=== PATIENT | male | born 1970 | race Caucasian/White ===

== ENCOUNTER 2023-06-24 10:42 | Observation (INO) | payer OTHER ==
[~2023-06-24] VITALS: Ht 162.6 cm; Wt 72.5 kg
[2023-06-24] MEDS: PANTOPRAZOLE 40MG VIAL IV ONE (11:59)
[2023-06-24 12:09] LABS: INR 1.12; PROTHROMBIN TIME 14.1 SECONDS (12.5-14.5)
[2023-06-24 12:10] LABS: PARTIAL THROMBOPLASTIN TIME 31.5 SECONDS (24.8-34.2)
[2023-06-24 12:11] LABS: BASO % 0.9 % (0.0-1.0); EOS # 0.1 10^3/uL (0.0-0.5); EOS % 3.3 % (0.0-3.0); HEMATOCRIT 35.6 % (42.0-52.0); HEMOGLOBIN 12.4 g/dl (13.5-17.5); LYMPH # 0.9 10^3/uL (1.5-5.0); MEAN CORPUSCULAR HEMOGLOBIN 29.3 pg (27.0-33.0); MEAN CORPUSCULAR HGB CONC 34.8 g/dl (32.0-36.5); MEAN CORPUSCULAR VOLUME 84.2 fl (80.0-96.0); MONO # 0.4 10^3/uL (0.0-0.8); MONO % 10.1 % (2.0-8.0); NEUTROPHILS # 2.8 10^3/uL (1.5-8.5); NEUTROPHILS % 65.2 % (36.0-66.0); PLATELET COUNT, AUTOMATED 107 10^3/uL (150-450); RED BLOOD COUNT 4.23 10^6/uL (4.30-6.10); WHITE BLOOD COUNT 4.3 10^3/uL (4.0-10.0)
[2023-06-24 12:18] LABS: LIPASE 38 U/L (12-53)
[2023-06-24 12:20] LABS: ALBUMIN 3.6 G/DL (3.2-5.2); ALKALINE PHOSPHATASE 99 U/L (46-116); ALT/SGPT 44 U/L (7.0-40); AST/SGOT 31 U/L (<34); BLOOD UREA NITROGEN 13 MG/DL (9-23); CALCIUM LEVEL 8.6 MG/DL (8.5-10.1); CARBON DIOXIDE LEVEL 26 MMOL/L (20-31); CHLORIDE LEVEL 107 MMOL/L (98-107); CREATININE FOR GFR 0.67 MG/DL (0.70-1.30); GLOMERULAR FILTRATION RATE > 60.0 (>56); GLUCOSE, FASTING 164 MG/DL (60-100); POTASSIUM SERUM 4.6 MMOL/L (3.5-5.1); SODIUM LEVEL 138 MMOL/L (136-145); TOTAL PROTEIN 7.7 G/DL (5.7-8.2)
[2023-06-24 12:38] LABS: RSV AMPLIFICATION NEGATIVE (NEGATIVE)
[2023-06-24] MEDS ORDERED: MED REC IN PROGRESS XX SCH (13:05)
[2023-06-24] MEDS ORDERED: ISOVUE-370 76% 100ML VIAL As Ordered ONE (13:22)
[2023-06-24] MEDS ORDERED: MOM 30ML SUSPENSION UDC PO PRN (13:30)
[2023-06-24] MEDS ORDERED: GLUCOSE 4GM CHEW TABLET PO PRN (14:00)
[2023-06-24] MEDS ORDERED: GLUCAGON INJ 1MG VIAL SC PRN (14:00)
[2023-06-24] MEDS ORDERED: DEXTROSE 50% 50ML SYRINGE IV PRN (14:00)
[2023-06-24] MEDS: cefTRIAXone SOD 1 GM in D5W MINI-BAG PLUS 50 ML IV SCH (14:13)
[2023-06-24] MEDS ORDERED: MED REC CURRENTLY UNOBTAINABLE XX SCH (14:45)
[2023-06-24] MEDS: LR 1,000 ML IV SCH ×2 (14:48→17:05)
[2023-06-24] MEDS: OCTREOTIDE ACETATE 100MCG/ML VIAL **IV ADMINISTRATION ONLY IV ONE (14:48)
[2023-06-24] MEDS: OCTREOTIDE ACETATE 1,200 MCG in NS 238.8 ML IV SCH (14:52)
[2023-06-24] MEDS ORDERED: METF500T13 PO (15:17)
[2023-06-24] MEDS ORDERED: PROP60TA14 PO (15:17)
[2023-06-24] MEDS ORDERED: GLIM1TAB4 PO (15:17)
[2023-06-24] MEDS ORDERED: PANT40TA29 PO (15:17)
[2023-06-24] MEDS ORDERED: SUMA50TA2 PO (15:17)
[2023-06-24] MEDS ORDERED: med rec comment (15:18)
[2023-06-24] MEDS ORDERED: HOME MED LIST COMPLETE! XX SCH (15:20)
[2023-06-24 15:21] LABS: IRON (FE) 92 UG/DL (65-175); PERCENT SATURATION 23.4 % (19.7-50.0); TOTAL IRON BINDING CAPACITY 394 UG/DL (250-425)
[2023-06-24 15:22] LABS: FERRITIN 9.5 NG/ML (10.5-307.3)
[2023-06-24 15:23] LABS: VITAMIN B12 LEVEL 391 PG/ML (211-911)
[2023-06-24 15:24] LABS: FOLATE 15.41 NG/ML (>5.4)
[2023-06-24 15:56] LABS: HEPATITIS B CORE ANTIBODY IGM NEGATIVE (NEGATIVE); HEPATITIS C VIRUS ABY INDEX 0.09 INDEX (<0.8)
[2023-06-24] MEDS ORDERED: ROCURONIUM BROMIDE 50MG/5ML VIAL As Ordered ONE (16:03)
[2023-06-24] MEDS ORDERED: MIDAZOLAM INJ 2MG/2ML VIAL As Ordered ONE (16:03)
[2023-06-24] MEDS ORDERED: ONDANSETRON 4MG 2ML VIAL As Ordered ONE (16:03)
[2023-06-24] MEDS ORDERED: LIDOCAINE 2% 100MG/5ML SDV (FOR ANES.) As Ordered ONE (16:03)
[2023-06-24] MEDS ORDERED: fentaNYL 100 MCG/2 ML INJECTION As Ordered ONE (16:03)
[2023-06-24] MEDS ORDERED: propofoL 200 MG/20 ML VIAL As Ordered ONE (16:03)
[2023-06-24] MEDS ORDERED: SUCCINYLCHOLINE 100MG/5ML SYRINGE As Ordered ONE (16:04)
[2023-06-24] MEDS ORDERED: PHENYLephrine 500MCG 5ML (100MCG/ML) SYRINGE As Ordered ONE (16:38)
[2023-06-24] MEDS ORDERED: ONDANSETRON 4MG 2ML VIAL IV PRN (17:05)
[2023-06-24] MEDS ORDERED: oxyCODONE 5MG TAB PO PRN (17:05)
[2023-06-24] MEDS ORDERED: fentaNYL 100 MCG/2 ML INJECTION IV PRN (17:05)
[2023-06-24 17:50] VITALS: O2SAT 97
[2023-06-24 17:52] VITALS: BP 125/71; O2SAT 97
[2023-06-24 18:00] VITALS: BP 125/71; TEMP 97.8; O2SAT 97
[2023-06-24] MEDS: INSULIN LISPRO (NovoLOG) PER UNIT SC SCH (18:00)
[2023-06-24 18:23] LABS: HEMATOCRIT 34.2 % (42.0-52.0); HEMOGLOBIN 11.6 g/dl (13.5-17.5); MEAN CORPUSCULAR HGB CONC 33.9 g/dl (32.0-36.5); MEAN CORPUSCULAR VOLUME 85.5 fl (80.0-96.0); WHITE BLOOD COUNT 3.6 10^3/uL (4.0-10.0)
[2023-06-24 18:52] LABS: PLATELET COUNT, AUTOMATED 84 10^3/uL (150-450)
[2023-06-24 20:16] VITALS: BP 115/71; TEMP 97.1; O2SAT 97
[2023-06-24] MEDS: PANTOPRAZOLE 40MG VIAL IV SCH (21:08)
[2023-06-25] VITALS (10 sets, daily range): BP systolic 117–147; BP diastolic 70–93; TEMP 97.2–99.9; O2SAT 91–98
[2023-06-25 02:06] LABS: HEMATOCRIT 31.8 % (42.0-52.0); MEAN CORPUSCULAR HEMOGLOBIN 29.1 pg (27.0-33.0); MEAN CORPUSCULAR HGB CONC 34.6 g/dl (32.0-36.5); MEAN CORPUSCULAR VOLUME 84.1 fl (80.0-96.0); RED BLOOD COUNT 3.78 10^6/uL (4.30-6.10); WHITE BLOOD COUNT 3.1 10^3/uL (4.0-10.0)
[2023-06-25 02:07] LABS: PLATELET COUNT, AUTOMATED 71 10^3/uL (150-450)
[2023-06-25 06:33] LABS: INR 1.23; PROTHROMBIN TIME 15.1 SECONDS (12.5-14.5)
[2023-06-25 06:56] LABS: ALKALINE PHOSPHATASE 77 U/L (46-116); ALT/SGPT 43 U/L (7.0-40); AST/SGOT 32 U/L (<34); BILIRUBIN,TOTAL 1.1 MG/DL (0.3-1.2); BLOOD UREA NITROGEN 11 MG/DL (9-23); CALCIUM LEVEL 8.2 MG/DL (8.5-10.1); CARBON DIOXIDE LEVEL 29 MMOL/L (20-31); CHLORIDE LEVEL 105 MMOL/L (98-107); GLOMERULAR FILTRATION RATE > 60.0 (>56); GLUCOSE, FASTING 186 MG/DL (60-100); POTASSIUM SERUM 4.6 MMOL/L (3.5-5.1); SODIUM LEVEL 139 MMOL/L (136-145); TOTAL PROTEIN 6.6 G/DL (5.7-8.2)
[2023-06-25] MEDS ORDERED: FERRIC CARBOXYMALTOSE INJ 750 MG, VIAL MATE ADAPTER 1 EACH in NS 250 ML IV ONE (08:00)
[2023-06-25] MEDS: FERRIC CARBOXYMALTOSE INJ 750 MG, VIAL MATE ADAPTER 1 EACH in NS 250 ML IV ONE (09:21)
[2023-06-25 10:18] LABS: HEMATOCRIT 32.1 % (42.0-52.0); HEMOGLOBIN 11.1 g/dl (13.5-17.5); MEAN CORPUSCULAR HEMOGLOBIN 29.5 pg (27.0-33.0); MEAN CORPUSCULAR HGB CONC 34.6 g/dl (32.0-36.5); MEAN CORPUSCULAR VOLUME 85.4 fl (80.0-96.0); RED BLOOD COUNT 3.76 10^6/uL (4.30-6.10); WHITE BLOOD COUNT 2.8 10^3/uL (4.0-10.0)
[2023-06-25 10:21] LABS: PLATELET COUNT, AUTOMATED 71 10^3/uL (150-450)
[2023-06-25] MEDS: ACETAMINOPHEN TAB 650MG DOSE (2X325MG) PO PRN (12:41)
[2023-06-25] MEDS: ONDANSETRON 4MG ORAL DISINTEGRATING TAB SL PRN (14:25)
[2023-06-25] MEDS: SUMAtriptan SUCCINATE 25 MG TAB PO ONE (15:18)
[2023-06-25 17:58] LABS: HEMATOCRIT 34.6 % (42.0-52.0); HEMOGLOBIN 11.8 g/dl (13.5-17.5); MEAN CORPUSCULAR HGB CONC 34.1 g/dl (32.0-36.5); RED BLOOD COUNT 4.07 10^6/uL (4.30-6.10); WHITE BLOOD COUNT 3.2 10^3/uL (4.0-10.0)
[2023-06-25 18:00] LABS: PLATELET COUNT, AUTOMATED 74 10^3/uL (150-450)
[2023-06-26 02:06] LABS: HEMATOCRIT 31.9 % (42.0-52.0); HEMOGLOBIN 11.1 g/dl (13.5-17.5); MEAN CORPUSCULAR HEMOGLOBIN 29.4 pg (27.0-33.0); MEAN CORPUSCULAR HGB CONC 34.8 g/dl (32.0-36.5); MEAN CORPUSCULAR VOLUME 84.6 fl (80.0-96.0); RED BLOOD COUNT 3.77 10^6/uL (4.30-6.10); WHITE BLOOD COUNT 2.8 10^3/uL (4.0-10.0)
[2023-06-26 02:07] LABS: PLATELET COUNT, AUTOMATED 75 10^3/uL (150-450)
[2023-06-26 03:50] VITALS: BP 124/72; TEMP 97.8; O2SAT 96
[2023-06-26 07:28] LABS: INR 1.26; PROTHROMBIN TIME 15.4 SECONDS (12.5-14.5)
[2023-06-26 07:43] LABS: ALBUMIN 3.2 G/DL (3.2-5.2); ALKALINE PHOSPHATASE 77 U/L (46-116); ALT/SGPT 40 U/L (7.0-40); AST/SGOT 31 U/L (<34); BILIRUBIN,TOTAL 0.8 MG/DL (0.3-1.2); BLOOD UREA NITROGEN 7 MG/DL (9-23); CALCIUM LEVEL 8.1 MG/DL (8.5-10.1); CARBON DIOXIDE LEVEL 29 MMOL/L (20-31); CHLORIDE LEVEL 106 MMOL/L (98-107); CREATININE FOR GFR 0.82 MG/DL (0.70-1.30); GLOMERULAR FILTRATION RATE > 60.0 (>56); GLUCOSE, FASTING 158 MG/DL (60-100); SODIUM LEVEL 138 MMOL/L (136-145); TOTAL PROTEIN 6.6 G/DL (5.7-8.2)
[2023-06-26] MEDS: INSULIN LISPRO (NovoLOG) PER UNIT SC SCH ×2 (08:46→20:18)
[2023-06-26 09:09] VITALS: BP 130/82; TEMP 96.8; O2SAT 96
[2023-06-26 09:46] LABS: HEMATOCRIT 36.1 % (42.0-52.0); MEAN CORPUSCULAR HEMOGLOBIN 28.8 pg (27.0-33.0); MEAN CORPUSCULAR HGB CONC 33.2 g/dl (32.0-36.5); MEAN CORPUSCULAR VOLUME 86.8 fl (80.0-96.0); PLATELET COUNT, AUTOMATED 90 10^3/uL (150-450); RED BLOOD COUNT 4.16 10^6/uL (4.30-6.10); WHITE BLOOD COUNT 3.7 10^3/uL (4.0-10.0)
[2023-06-26] MEDS: METOCLOPRAMIDE INJ 10MG/2ML VIAL IV PRN (10:05)
[2023-06-26] MEDS ORDERED: CEFD300CAP PO (10:31)
[2023-06-26] MEDS ORDERED: FERR325T3 PO (10:55)
[2023-06-26] MEDS: SUMAtriptan SUCCINATE 25 MG TAB PO ONE (11:26)
[2023-06-26 12:45] VITALS: BP 134/77; TEMP 97.1; O2SAT 98
[2023-06-26 15:59] VITALS: BP 132/82; TEMP 98; O2SAT 95
[2023-06-26] MEDS: OCTREOTIDE ACETATE 1,200 MCG in NS 238.8 ML IV SCH (17:33)
[2023-06-26 20:00] VITALS: BP 118/80; TEMP 97; O2SAT 98
[2023-06-26] MEDS: PROPRANOLOL 20 MG TAB PO SCH (20:18)
[2023-06-26 21:08] VITALS: BP 136/86; TEMP 98.4
[2023-06-27 06:00] VITALS: BP 111/72; TEMP 97.9; O2SAT 96
[2023-06-27 06:51] LABS: INR 1.23; PROTHROMBIN TIME 15.1 SECONDS (12.5-14.5)
[2023-06-27 09:24] VITALS: BP 144/86
[2023-06-28 16:08] LABS: ANCA-ATYPICAL <1:20 titer (Neg:<1:20); ANTI-MITOCHONDRIAL ANTIBODY <20.0 Units (0.0-20.0); ANTINUCLEAR ANTIBODIES DIRECT Negative (Negative); CERULOPLASMIN 25.3 mg/dL (16.0-31.0); CYTOPLASMIC NEUTROP AB ANCA-C <1:20 titer (Neg:<1:20); LIVER-KIDNEY MICROSOMAL ABY <20.1 Units (0.0-20.0); PERINUCLEAR AB ANCA-P <1:20 titer (Neg:<1:20); TISSUE TRANSGLUTAMINASE IgA <2 U/mL (0-3)
== END 2023-06-27 15:22 | disposition home or self-care (01) ==
LOC: M ED 10:42 → INTOOBSV 13:29 → M ED INP 13:29 → M PCU 17:38 → M MSPAV 06-26 18:54 → M PCU 06-26 19:26 → M MSPAV 06-26 20:57
PROVIDERS: ADMIT Student in an Organized Health Care Education/Training Program; ATTEND Student in an Organized Health Care Education/Training Program
DX: I85.11 Secondary esophageal varices with bleeding (principal); K74.60 Unspecified cirrhosis of liver; D62 Acute posthemorrhagic anemia; D50.9 Iron deficiency anemia, unspecified; K92.1 Melena; K31.89 Other diseases of stomach and duodenum; K76.6 Portal hypertension; D61.818 Other pancytopenia; G43.909 Migraine, unspecified, not intractable, without status migrainosus; E11.9 Type 2 diabetes mellitus without complications; Z79.84 Long term (current) use of oral hypoglycemic drugs; Z79.899 Other long term (current) drug therapy
CPT/HCPCS: 36415; 43244; 74177; 80053; 80074; 82270; 82390; 82607; 82728; 82746; 82784; 83550; 83605; 83690; 85025; 85027; 85049; 85055; 85610; 85730; 86037; 86038; 86255; 86364; 86376; 86850; 86900; 86901; 87631; 93005; 93041; 94760; 96361; 96365; 96366; 96367; 96375; 96376; 99285; C9113; J0696; J1439; J1815; J2250; J2354; J2371; J2405; J2765; J3010; Q9967

== ENCOUNTER 2023-10-22 07:42 | Day surgery (SDC) | payer OTHER ==
[~2023-10-22] VITALS: Ht 162.6 cm; Wt 70.3 kg
[~2023-10-22 07:42] MED LIST: CEFD300CAP PO; FERR1TAB8 PO; FERR325T3 PO; GLIM1TAB84 PO; METF500T13 PO; NS 1,000 ML IV ONE; PANT40TA29 PO; PROP60TA14 PO; SUMA50TA2 PO; med rec comment
[2023-10-22] MEDS ORDERED: fentaNYL 100 MCG/2 ML INJECTION As Ordered ONE (08:54)
[2023-10-22] MEDS ORDERED: LIDOCAINE 2% 100MG/5ML SDV (FOR ANES.) As Ordered ONE (08:54)
[2023-10-22] MEDS ORDERED: propofoL 500 MG/50 ML VIAL As Ordered ONE (08:54)
[2023-10-22 09:20] VITALS: TEMP 96.8
[2023-10-22 09:38] VITALS: BP 119/79; O2SAT 96
== END 2023-10-22 09:42 | disposition home or self-care (01) ==
LOC: M OPP 07:42
PROVIDERS: ATTEND Internal Medicine Gastroenterology
DX: Z12.11 Encounter for screening for malignant neoplasm of colon (principal); K64.8 Other hemorrhoids; K31.89 Other diseases of stomach and duodenum; K76.6 Portal hypertension; I85.00 Esophageal varices without bleeding; E10.9 Type 1 diabetes mellitus without complications; Z79.84 Long term (current) use of oral hypoglycemic drugs; Z79.899 Other long term (current) drug therapy
CPT/HCPCS: 43235; 45378; J3010

== ENCOUNTER 2023-12-05 06:20 | Emergency (ER) | payer OTHER ==
[~2023-12-05] VITALS: Ht 157.5 cm; Wt 70.8 kg
[~2023-12-05 06:20] MED LIST changes: -NS 1,000 ML IV ONE
[2023-12-05 07:37] LABS: BASO % 0.7 % (0.0-1.0); EOS # 0.2 10^3/uL (0.0-0.5); EOS % 4.1 % (0.0-3.0); HEMATOCRIT 41.8 % (42.0-52.0); HEMOGLOBIN 14.8 g/dl (13.5-17.5); LYMPH # 1.1 10^3/uL (1.5-5.0); LYMPH % 19.6 % (24.0-44.0); MEAN CORPUSCULAR HGB CONC 35.4 g/dl (32.0-36.5); MEAN CORPUSCULAR VOLUME 90.3 fl (80.0-96.0); MONO # 0.6 10^3/uL (0.0-0.8); NEUTROPHILS # 3.6 10^3/uL (1.5-8.5); NEUTROPHILS % 64.1 % (36.0-66.0); PLATELET COUNT, AUTOMATED 104 10^3/uL (150-450); RED BLOOD COUNT 4.63 10^6/uL (4.30-6.10); WHITE BLOOD COUNT 5.6 10^3/uL (4.0-10.0)
[2023-12-05 08:07] LABS: LIPASE 69 U/L (12-53)
[2023-12-05 08:08] LABS: AMYLASE 38 U/L (30-118)
[2023-12-05 08:09] LABS: ALBUMIN 3.6 G/DL (3.2-5.2); ALKALINE PHOSPHATASE 110 U/L (46-116); ALT/SGPT 37 U/L (7.0-40); AST/SGOT 20 U/L (<34); BILIRUBIN,DIRECT 0.4 MG/DL (<0.4); BILIRUBIN,TOTAL 0.9 MG/DL (0.3-1.2); BLOOD UREA NITROGEN 11 MG/DL (9-23); CALCIUM LEVEL 8.9 MG/DL (8.5-10.1); CARBON DIOXIDE LEVEL 23 MMOL/L (20-31); CHLORIDE LEVEL 107 MMOL/L (98-107); CREATININE FOR GFR 0.77 MG/DL (0.70-1.30); GLOMERULAR FILTRATION RATE > 60.0 (>56); GLUCOSE, FASTING 205 MG/DL (60-100); POTASSIUM SERUM 3.9 MMOL/L (3.5-5.1); SODIUM LEVEL 138 MMOL/L (136-145); TOTAL PROTEIN 7.6 G/DL (5.7-8.2)
[2023-12-05] MEDS ORDERED: ISOVUE-370 76% 100ML VIAL As Ordered ONE (09:05)
[2023-12-05] MEDS: METOCLOPRAMIDE INJ 10MG/2ML VIAL IV ONE (09:25)
[2023-12-05] MEDS: NS 1,000 ML IV ONE (09:25)
[2023-12-05] MEDS: PANTOPRAZOLE 40MG VIAL IV ONE (09:25)
[2023-12-05] MEDS ORDERED: ONDA-282 PO (11:27)
[2023-12-05 11:52] VITALS: BP 102/64; TEMP 97.7; O2SAT 98
== END 2023-12-05 11:53 | disposition home or self-care (01) ==
LOC: M ED 06:20
DX: A04.4 Other intestinal Escherichia coli infections (principal); E11.9 Type 2 diabetes mellitus without complications; D64.9 Anemia, unspecified; Z79.84 Long term (current) use of oral hypoglycemic drugs; Z79.899 Other long term (current) drug therapy
CPT/HCPCS: 74177; 80048; 80076; 82150; 83690; 85025; 86850; 86900; 86901; 87507; 96361; 96374; 99284; J2470; J2765; Q9967

== ENCOUNTER → 2024-04-01 | Outpatient (CLI) | payer OTHER ==
[~2024-04-01] MED LIST changes: +GLIM2TAB4 PO; +ONDA-282 PO
== END ==
LOC: M RAD 09:02
PROVIDERS: ATTEND Nurse Practitioner Family
DX: K74.60 Unspecified cirrhosis of liver (principal)

== ENCOUNTER → 2024-04-14 | Outpatient (CLI) | payer OTHER | LOC: M LRY 14:51 | PROVIDERS: ATTEND Physician Assistant Medical | DX: K74.60 Unspecified cirrhosis of liver (principal) ==

== ENCOUNTER → 2024-06-16 | Outpatient (CLI) | payer OTHER | LOC: M LAB 14:30 | PROVIDERS: ATTEND Nurse Practitioner Family | DX: K74.60 Unspecified cirrhosis of liver (principal) ==

== ENCOUNTER 2024-11-17 12:38 | Day surgery (SDC) | payer OTHER ==
[~2024-11-17] VITALS: Ht 157.5 cm; Wt 70.8 kg
[2024-11-17] MEDS ORDERED: LIDOCAINE 2% 100 MG/5 ML SDV (FOR ANES.) As Ordered ONE (13:25)
[2024-11-17] MEDS ORDERED: GLYCOPYRROLATE INJ 0.2 MG/ML 2 ML VIAL As Ordered ONE (13:26)
[2024-11-17 13:47] VITALS: TEMP 97.8
[2024-11-17 14:05] VITALS: BP 119/71; O2SAT 97
== END 2024-11-17 14:05 | disposition home or self-care (01) ==
LOC: M OPP 12:38
PROVIDERS: ATTEND Internal Medicine Gastroenterology
DX: K31.89 Other diseases of stomach and duodenum (principal); K76.6 Portal hypertension; I85.01 Esophageal varices with bleeding; Z79.84 Long term (current) use of oral hypoglycemic drugs; Z79.899 Other long term (current) drug therapy
CPT/HCPCS: 43239; 88305; J1596